=== PATIENT | female | born 1955 | race Caucasian/White ===

== ENCOUNTER 2023-03-15 13:24 | Emergency (ER) | payer MEDICARE, SELFPAY ==
[2023-03-15 13:51] VITALS: BP 154/84; PULSE 87; RESP 20; TEMP 36.9; O2SAT 99
--- NOTE | 2023-03-15 14:30 | ED.SKABFB ---
HPI - Skin/Abscess/Foreign Bdy General Chief complaint: Skin/Abscess/Foreign Body Stated complaint: rash chest arm Time Seen by Provider: 03/15/23 14:31 Source: patient Mode of arrival: ambulatory Limitations: no limitations History of Present Illness HPI narrative: 67-year-old female presented for complaint of rash across the chest and upper abdomen worsening over the past 8 days. She states this started at the right chin and slowly spread. She denies known exposures chin you medication, detergent, lotion, soap etc. States this started after cutting grass. Patient denies lip, tongue, throat swelling/itching, shortness of breath or wheezing, nausea, vomiting. Related Data Allergies Allergy/AdvReac Type Severity Reaction Status Date / Time No Known Allergies Allergy Verified 03/15/23 14:02 Review of Systems Review of Systems: CONSTITUTIONAL: Denies body aches, fever, chills, or sweats. EYES: Denies visual changes, redness, or discharge. ENT: Denies rhinorrhea, congestion CARDIOVASCULAR: Denies chest pain, palpitations, or edema. RESPIRATORY: Denies cough or dyspnea. GASTROINTESTINAL: Denies abdominal pain, nausea, vomiting, or diarrhea. SKIN: per HPI MUSCULOSKELETAL: Denies back pain, joint pain, or myalgia. NEUROLOGIC: Denies headache, numbness, tingling, or weakness. [facility] Past Medical History Medical History (Updated 03/15/23 @ 16:47 by Suad Kang APRN) No pertinent past medical history Family History Family History Grandparent Family history of tuberculosis Diabetes mellitus Sibling Family history of migraine headaches Family history of malignant neoplasm of thyroid Family history of heart disease in male family member before age 55 Mother Family history of arthritis Family history of malignant neoplasm of breast in first degree relative Family history of pancreatic disease Other Family history of cardiovascular disease Family history of malignant neoplasm Social History Social History Smoking end date: 11/20/95 Alcohol intake: current Comments At time of signature, I have reviewed and agree with nursing past medical, surgical, social and family history unless otherwise noted. Please see nursing chart for further information. There is no relevant family history pertinent to the presenting complaint Exam Narrative: GENERAL: Well-appearing HEAD: Normocephalic, atraumatic. EYES: conjunctivae clear, and EOMI. ENT: Mucous membranes moist. Oropharynx without edema, erythema or lesions. NECK: Supple. No lymphadenopathy CHEST: Clear to auscultation. HEART: Regular rate and rhythm. SKIN: Warm, dry. Scattered erythematous vesicular lesions noted across the chest, across the upper abdomen, right neck, and right elbow c/w contact dermatitis NEURO: Alert and oriented x3. Course Course Emergency Course: Patient is aware of diagnosis, understands and agrees to treatment plan. Anticipatory guidance given. Patient agrees to follow-up as directed and is aware of reasons to seek care at the emergency department. Portions of this record may have been created with voice recognition software Level of Care: Express Care Visit Vital Signs Vital signs: Vital Signs Temperature 98.4 F 03/15/23 13:51 Pulse Rate 87 03/15/23 13:51 Respiratory Rate 20 03/15/23 13:51 Blood Pressure 154/84 H 03/15/23 13:51 Pulse Oximetry 99 03/15/23 13:51 Oxygen Delivery Room Air 03/15/23 13:51 Temperature 98.4 F 03/15/23 13:51 Pulse Rate 87 03/15/23 13:51 Respiratory Rate 20 03/15/23 13:51 Blood Pressure 154/84 H 03/15/23 13:51 Pulse Oximetry 99 03/15/23 13:51 Oxygen Delivery Room Air 03/15/23 13:51 Reviewed MDM - Skin/Abscess/Foreign Bdy MDM Narrative Medical decision making narrative: Discussed physical exam findings. Advi
== END 2023-03-15 14:40 | disposition home or self-care (01) ==
PROVIDERS: Emergency Provider Nurse Practitioner Family; PCP Family Medicine
DX: L25.9 Unspecified contact dermatitis, unspecified cause (principal); Z87.891 Personal history of nicotine dependence
CPT/HCPCS: 99203; G0463